=== PATIENT | male | born 1950 | race Caucasian/White ===

== ENCOUNTER 2020-07-30 12:57 | Emergency (ER) | payer MEDICARE ==
[~2020-07-30] VITALS: Ht 180.3 cm; Wt 107.0 kg
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
--- NOTE | 2020-07-30 13:44 | NUR ---
ASSUMED CARE OF PATIENT. REPORT GIVEN FROM RONDA MOSLEY
[2020-07-30] MEDS ORDERED: KETOROLAC 30 MG/1 ML ONE (13:46)
[2020-07-30] MEDS ORDERED: KETOROLAC 30 MG/1 ML IM ONE (14:00)
[2020-07-30 14:27] VITALS: BP 131/71
== END 2020-07-30 14:49 | disposition home or self-care (01) ==
LOC: ED 14:25
DX: S90.02XA Contusion of left ankle, initial encounter (principal); K21.9 Gastro-esophageal reflux disease without esophagitis; W21.07XA Struck by softball, initial encounter; Y93.64 Activity, baseball; Y92.328 Other athletic field as the place of occurrence of the external cause; Y99.8 Other external cause status
CPT/HCPCS: 73610; 96372; 99283; J1885